=== PATIENT | male | born 1990 | race Caucasian/White ===

== ENCOUNTER 2023-06-06 08:23 | Emergency (ER) | payer BC, SELFPAY ==
[2023-06-06 08:34] VITALS: BP 143/94; PULSE 84; RESP 16; TEMP 35.9; O2SAT 96
--- NOTE | 2023-06-06 08:51 | ED.GENADULT ---
HPI - General Adult General Chief complaint: Upper Respiratory Infection Stated complaint: Poss sinus infection Source: patient, RN notes reviewed and old records reviewed Mode of arrival: ambulatory Limitations: no limitations History of Present Illness HPI narrative: 33-year-old male presents with complaint cough, sinus congestion, sinus pain, headache for over 1 week. Patient states nasal discharge and sputum production is yellow. Patient taking [id number] medications with no relief. Patient denies chest pain, weakness, dizziness, shortness of breath. MD complaint: Sinus congestion/ pressure, cough Onset (ago): week(s) (1) Related Data Allergies Allergy/AdvReac Type Severity Reaction Status Date / Time No Known Allergies Allergy Verified 06/06/23 08:45 Review of Systems Constitutional: Constitutional: Reports no additional constitutional complaints, Denies body ache(s), Denies chills, Denies fatigue, Denies fever(s) and Reports headache(s) Eyes: Eyes: Reports no additional eye complaints and Denies blurry vision ENT: Reports system reviewed and no additional complaints, except as documented, Denies vertigo, Denies dizziness, Denies ear discharge, Denies otalgia, Denies facial pain, Reports headache(s), Reports nasal congestion, Reports nasal discharge, Reports sinus pain, Reports sinus pressure and Denies sore throat Cardiovascular: Cardiovascular: Reports no additional cardiovascular complaints, Denies chest pain, Denies chest pain at rest, Denies rapid heart rate and Denies dyspnea Respiratory: Respiratory: Reports no additional respiratory complaints, Reports chest congestion, Reports cough, Denies pain on inspiration, Denies pain with cough and Denies dyspnea Gastrointestinal: Gastrointestinal: Denies abdominal pain, Denies diarrhea, Denies nausea and Denies vomiting Integumentary/Breasts: Skin/Breast: Denies rash Neurologic: Reports system reviewed and no additional complaints, except as documented, Denies vertigo, Denies dizziness and Denies headache(s) Endocrine: Endocrine: Denies fatigue PMFSH Comments At the time of my signature, I reviewed and agree with the nursing past medical, surgical, social, and family history. There is no relevant family history pertinent to the patient complaint. Exam Const: General: cooperative, healthy appearing, no acute distress and well nourished Nutritional Appearance: well nourished Orientation/consciousness: patient oriented x3 Limitations: no limitations HENMT: Head: normal to inspection and normocephalic Ears: external ears normal, TM's normal bilaterally, mastoids normal and Abnormal EAC present Face/Nose/Sinus: Nasal discharge present purulent bilateral Face and sinus: sinus tenderness maxillary ( left cited) Mouth: Yes Normal oral and palatal mucosa present, Yes oropharynx normal and Yes moist mucous membranes Throat: tonsils normal, uvula midline and no uvular edema Eyes: General: appearance normal, both eyes and all related structures Sclera: sclerae normal Pupils: Equal, round and reactive pupils present Resp: Effort & Inspection: normal respiratory effort, able to speak in complete sentences, no audible wheezes, no cough, no respiratory distress and no retractions Auscultation: clear to auscultation bilaterally, no crackles, no rales, no rhonchi and no wheezes Cardio: Rate: regular rate Rhythm: regular rhythm Skin: General skin exam: normal color and no rashes or lesions noted Neuro: General: patient oriented x3 Cranial nerves: Yes Equal, round and reactive pupils present Psych: Appearance: grossly normal Mental Status: mental status grossly normal Speech and movement: Normal speech and movement present Affect: normal affect Course Course Emergency Course: Patient is aware of diagnosis, understands and agrees to treatment plan.? Anticipatory guidance given.? Patient agrees to follow-up as directed and is aware of reasons to seek care at the em
== END 2023-06-06 09:02 | disposition home or self-care (01) ==
PROVIDERS: Emergency Provider Registered Nurse; PCP Internal Medicine
DX: J01.90 Acute sinusitis, unspecified (principal)
CPT/HCPCS: 99213; G0463

== ENCOUNTER 2024-12-11 09:12 | Emergency (ER) | payer BC, SELFPAY ==
--- OUTSIDE RECORDS SUMMARY | 2024-12-11 09:15 | XMS_ITS | Clinical Summary ---
Author Organization [facility] Charu Delvalle Address [address] [place] [address] Care Team Providers Care Art Gilder Name Role Phone Raman Alex MD Primary Care Provider Allergies No known active allergies Medications albuterol HFA (PROAIR HFA) 90 mcg/actuation inhaler inhale 2 puff by INHALATION route every 4 - 6 hours as needed 3 Inhaler 0 0 Active Additional Information Patient not taking.Reported on 11/24/2024 loratadine (CLARITIN) 10 mg tablet take 1 tablet by oral route every day 0 0 4 Active Additional Information Patient not taking.Reported on 11/24/2024 Active Problems Problem Noted Date Diagnosed Date Alopecia areata 10/25/2013 Overview (09/15/2016): Alopecia areata Atopic rhinitis 10/25/2013 Overview (09/15/2016): ALLERGIC RHINITIS NOS Asthma 10/25/2013 Overview (09/15/2016): ASTHMA NOS Encounters Date Type Department Care Team Description 11/24/2024 7:15 PM CDT Office Visit [facility] [place] [address] [place] [phone] Marita Orona NP Routine sports physical exam (Primary Dx) from Last 3 Months Surgical History Surgery Date Site/Laterality Comments OTHER SURGICAL HISTORY 2008 tendon laceration: s/p repair Medical History Medical History Date Comments Hx Other Medical tendon lacerati on Family History Medical History Relation Name Comments Other Father 2 h/o prosate can cer; Psoriasis Mother 2 psoriasis; Relation Name Status Comments Father 1 Alive Father 2 Mother 1 Alive Mother 2 Social History Tobacco Use Types Packs/Day Years Used Date Smoking Tobacco: Never Alcohol Use Standard Drinks/Week Comments Yes 0 (1 standard drink = 0.6 oz pur e alcohol) Sex and Gender Information Value Date Recorded Sex Assigned at Not on file 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 Gender Identity Not on file Sexual Orientation Not on file Obstetrics History Last Filed Vital Signs Vital Sign Reading Time Taken Comments Blood Pressure 124/82 11/24/2024 7:17 PM CDT Pulse 80 11/24/2024 7:17 PM CDT Temperature 36.2 C (97.1 F) 11/24/2024 7:17 PM CDT Respiratory Rate 16 11/24/2024 7:17 PM CDT Oxygen Saturation 97% 11/24/2024 7:17 PM CDT Inhaled Oxygen Concentration - - Weight 100.2 kg (221 lb) 11/24/2024 7:17 PM CDT Height 182.9 cm (6') 11/24/2024 7:17 PM CDT Body Mass Index 29.97 11/24/2024 7:17 PM CDT Plan of Treatment Health Maintenance Due Date Last Done Comments Depression Screening 1990 Hepatitis C Screening 1990 DTaP/Tdap/Td Vaccine (1 - Tdap) 01/27/2003 3 Varicella Vaccines (1 of 2 - 13+ 2-dose series) 2003 Hepatitis B Screening 2008 Regular Well Visit/Exam 18-64 2008 Pneumococcal vaccine <65 (1 of 2 - PCV) 2009 Influenza Vaccine (Season Ended) 2025 HPV Vaccines Aged Out No longer eligi ble based on patient's age to complete this topic Insurance [employer] Care Teams Art Gilder Relationship Specialty Start Date End Date Raman Alex MD PCP - General 10/15/13
--- OUTSIDE RECORDS SUMMARY | 2024-12-11 09:15 | XMS_ITS | Clinical Summary ---
Author Organization [facility] Address [address] [place] [phone] Phone Care Team Providers Care Solderer Production Line Name Role Phone Raman Alex MD Primary Care Provider [phone] Allergies No known active allergies Medications ketorolac tromethamine (ACULAR) 0.5 % solutionIndicatio ns:UV keratitis, bilateral Administer 1 Drop in both eyes 4 times daily. 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 Gender Identity Not on file Sexual Orientation Not on file Occupation Industry Job Start Date Job End Date Not on file Not on file Not on file Not on file Last Filed Vital Signs Vital Sign Reading Time Taken Comments Blood Pressure 117/71 01/15/2016 8:16 AM CDT Pulse 72 01/15/2016 8:16 AM CDT Temperature 36.8 C (98.2 F) 01/15/2016 8:16 AM CDT Respiratory Rate 16 01/15/2016 8:16 AM CDT Oxygen Saturation 97% 01/15/2016 8:16 AM CDT Inhaled Oxygen Concentration - - Weight 72.6 kg (160 lb) 01/15/2016 8:16 AM CDT Height 177.8 cm (5' 10) 01/15/2016 8:16 AM CDT Body Mass Index 22.96 01/15/2016 8:16 AM CDT Plan of Treatment Health Maintenance Due Date Last Done Comments DTAP/TDAP/TD VACCINES (1 - Tdap) 2009 HEPATITIS B VACCINES (1 of 3 - 19+ 3-dose series) 2009 INFLUENZA VACCINE (#1) 2024 HPV VACCINES Aged Out No longer eligi ble based on patient's age to complete this topic Insurance [facility] BLUE ACCESS CHOICE Care Teams Solderer Production Line Relationship Specialty Start Date End Date Raman Alex MD [facility] [address] [facility] [address] [place] [address] PCP - General Internal Medicine 04/17/10
--- OUTSIDE RECORDS SUMMARY | 2024-12-11 09:15 | XMS_ITS | Encounter Summary ---
Author Organization [facility] Address [address] [facility] [place] [address] Care Team Providers Care Net Developer Consultant Name Role Phone Unavailable Primary Care Provider Unavailabl e Encounter Details Date Type Department Care Team (Late st Contact Info) Description 11/27/2019 Lab Requisition [facility] [address] [place] [address] Social History Tobacco Use Types Packs/Day Years Used Date Smoking Tobacco: Never Assessed Sex and Gender Information Value Date Recorded Sex Assigned at Not on file Legal Sex Male 10:46 AM CDT Gender Identity Not on file Sexual Orientation Not on file documented as of this encounter Plan of Treatment Not on file documented as of this encounter Procedures Procedure Name Priority Date/Time Associated Diagnosis Comments SARS-COV-2 (COVID-19) IN HOUSE Routine 11/27/2019 9:16 AM CDT documented in this encounter Results * SARS-COV-2 (COVID-19) IN HOUSE (11/27/2019 9:16 AM CDT) COVID-19 PCR Not detected Not detected, Invalid 11/27/2019 8:56 PM CDT [facility] Microbiology SPECIMEN FROM NASOPHARYNGEAL STRUCTURE / Unknown Collection / Unknown 11/27/2019 9:16 AM CDT 11/27/2019 10:47 AM CDT Narrative [facility] - 11/27/2019 8:56 PM CDT This Real Time RT-PCR assay was developed and its performance characteristics determined by [facility]. This test has been authorized by the Food and Drug administration (FDA)under an Emergency Use Authorization (EUA). This test has been validated in accordance with the FDA's guidance document Policy for Diagnostic Testing in Laboratories Certified to perform High Complexity Testing under CLIA prior to Emergency Use Authorization for Coronavirus Disease-2019 during the Public Health Emergency issued on August 09, 2019. FDA independent review of this validation is pending. This test is only authorized for the duration of time the declaration that circumstances exist justifying the authorization of emergency use of in vitro diagnostic tests for detection of SARS-CoV-2 virus and/or diagnosis of COVID-19 infection under section 564(b)(1) of the Act, 21 U.S.C 360bbb-3 (b)(1), unless the authorization is terminated or revoked sooner. us LAB - MICROBIOLOGY ORDERABLES Fi nal Result [facility] [address] [place] [address], [facility] [phone] documented in this encounter Visit Diagnoses Not on filedocumented in this encounter Additional Health Concerns Infection Onset Date Last Indicated Resolved Time COVID-19 Under Investigation 11/27/2019 11/27/2019 11/27/2019 8:56 PM CDT documented as of this encounter
--- OUTSIDE RECORDS SUMMARY | 2024-12-11 09:15 | XMS_ITS | Clinical Summary ---
Author Organization [facility] [employer] Address [address] [place] [address] Care Team Providers Care Library Circulation Technician Name Role Phone Unavailable Primary Care Provider Unavailabl e Source Comments [facility],non-owned Affiliates and Associated Physician Practices is amultiple site organization consisting of ambulatory clinics and hospital sitesin [place], [place], [place] and [place]. This disclosure is being madepursuant to the Care Everywhere program and may not contain all information available regarding this patient. Last updated 18.[employer] Allergies No known active allergies Medications * Be aware that medications may not be up to date on this document. Alwaysverify current medications with the patient. HYDROcodone-celso taminophen (NORCO) 5-325 MG tablet Take 1 (one) tablet by mouth every 6 hours as needed for Pain 12 tablet 2 Active tamsulosin (FLOMAX) 0.4 MG capsule Take 1 (one) capsule by mouth once daily after breakfast At the same time every day after a meal. 20 capsule 2 Active ondansetron, disintegrating, (ZOFRAN ODT) 4 MG tablet Take 1 (one) tablet by mouth every 6 hours as needed for Nausea/Vomitin g Allow tablet to dissolve on the tongue 12 tablet 2 Active Social History Tobacco Use Types Packs/Day Years Used Date Smoking Tobacco: Never Assessed Sex and Gender Information Value Date Recorded Sex Assigned at Not on file Legal Sex Male 10:46 AM CDT Gender Identity Not on file Sexual Orientation Not on file Last Filed Vital Signs Vital Sign Reading Time Taken Comments Blood Pressure 152/98 01/06/2022 9:28 AM CDT Pulse 62 01/06/2022 8:10 AM CDT Temperature - - Respiratory Rate 18 01/06/2022 8:10 AM CDT Oxygen Saturation 98% 01/06/2022 10:28 AM CDT Inhaled Oxygen Concentration - - Weight 95.3 kg (210 lb) 01/06/2022 8:10 AM CDT Height 182.9 cm (6') 01/06/2022 8:10 AM CDT Body Mass Index 28.48 01/06/2022 8:10 AM CDT Plan of Treatment Health Maintenance Due Date Last Done Comments HIV SCREENING 2005 HEPATITIS C SCREENING 05/23/2008 DTAP/TDAP/TD VACCINES (1 - Tdap) 2009 HEPATITIS B VACCINE (1 of 3 - 19+ 3-dose series) 2009 COVID-19 VACCINE (1 - 2023-2 5 season) 2024 DEPRESSION SCREENING 06/11/2024 INFLUENZA VACCINE (Season Ended) 2025 ZOSTER VACCINE (1 of 2) 2040 HIB VACCINE Aged Out No longer eligi ble based on patient's age to complete this topic HPV VACCINE Aged Out No longer eligi ble based on patient's age to complete this topic MENINGOCOCCAL (Group B) VACC INE SHARED DECISION-MAKING Aged Out No longer eligibl e based on patient's age to complete this topic MENINGOCOCCAL GROUPS A/C/Y/W VACCINE Aged Out No longer eligible b ased on patient's age to complete this topic PNEUMOCOCCAL VACCINE Aged Out No long er eligible based on patient's age to complete this topic Insurance [employer]
--- OUTSIDE RECORDS SUMMARY | 2024-12-11 09:15 | XMS_ITS | Referral Summary ---
Author Organization [facility] Charu Delvalle Address [address] [place] [address] Care Team Providers Care Block Placer Name Role Phone Raman Alex MD Primary Care Provider Encounters Date Type Department Care Team Description 11/24/2024 7:15 PM CDT Office Visit [facility] [place] [address] [place] [phone] Marita Orona, SERGIO Routine sports physical exam (Primary Dx) from Last 3 Months Allergies No known active allergies Medications albuterol [...] NOS Asthma 10/25/2013 Overview (09/15/2016): ASTHMA NOS Social History Tobacco Use Types Packs/Day Years Used Date Smoking Tobacco: Never Alcohol Use Standard Drinks/Week Comments Yes 0 (1 standard drink = 0.6 oz pur e alcohol) Sex and Gender Information Value Date Recorded Sex Assigned at Not on file 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
[2024-12-11 09:18] VITALS: BP 140/94; PULSE 80; RESP 20; TEMP 36.6; O2SAT 100
--- NOTE | 2024-12-11 09:20 | ED_ITS ---
HPI - Wound/Laceration General Chief Complaint: Wound/Laceration Stated Complaint: Cut on head Time Seen by Provider: 12/11/24 09:20 Source: patient Mode of arrival: ambulatory Limitations: no limitations History of Present Illness HPI narrative: 34 y/o male presented for c/o laceration to the head sustained last night 10pm. Says he struck his head while working underneath a car. Pt cleansed the site twice in the shower last night. Says it has continued to bleed. Has not taken anything for pain, rates 5/10. no LOC, dizziness, n/v or confusion. Last tetanus 2019. Related Data Allergies Allergy/AdvReac Type Severity Reaction Status Date / Time No Known Allergies Allergy Verified 12/11/24 09:32 Review of Systems Review of Systems: CONSTITUTIONAL: Denies body aches, fever, chills, or sweats. EYES: Denies visual changes, redness, or discharge. ENT: Denies rhinorrhea, congestion CARDIOVASCULAR: Denies chest pain, palpitations, or edema. RESPIRATORY: Denies cough or dyspnea. GASTROINTESTINAL: Denies abdominal pain, nausea, vomiting, or diarrhea. SKIN: per HPI MUSCULOSKELETAL: Denies back pain, joint pain, or myalgia. NEUROLOGIC: Denies headache, numbness, tingling, or weakness. PMFSH Comments At time of signature, I have reviewed and agree with nursing past medical, surgical, social and family history unless otherwise noted. Please see nursing chart for further information. There is no relevant family history pertinent to the presenting complaint Exam Narrative: GENERAL: Well-appearing HEAD: Left frontal scalp with2.5cm linear laceration, gaping approx 2mm, active bleeding, mild swelling surrounding the site. EYES: conjunctivae clear, and EOMI. ENT: Mucous membranes moist. Oropharynx without edema, erythema or lesions. NECK: Supple. No lymphadenopathy CHEST: Clear to auscultation. HEART: Regular rate and rhythm. SKIN: Warm, dry. NEURO: Alert and oriented x3. Course Course Emergency Course: Patient is aware of diagnosis, understands and agrees to treatment plan. Anticipatory guidance given. Patient agrees to follow-up as directed and is aware of reasons to seek care at the emergency department. Portions of this record may have been created with voice recognition software Level of Care: Express Care Visit Vital Signs Vital signs: Vital Signs Temperature 97.8 F 12/11/24 09:18 Pulse Rate 80 12/11/24 09:18 Respiratory Rate 20 12/11/24 09:18 Blood Pressure 140/94 H 12/11/24 09:18 Pulse Oximetry 80 L 12/11/24 09:18 Oxygen Delivery Room Air 12/11/24 09:18 Temperature 97.8 F 12/11/24 09:18 Pulse Rate 80 12/11/24 09:18 Respiratory Rate 20 12/11/24 09:18 Blood Pressure 140/94 H 12/11/24 09:18 Pulse Oximetry 80 L 12/11/24 09:18 Oxygen Delivery Room Air 12/11/24 09:18 Reviewed Procedures Laceration Left frontal scalp: Site: scalp Size (cm): 2.5 Description: linear and clean Depth: simple, single layer Pre-repair: irrigated (and cleansed with skintegrity) ====== Skin Level ====== Skin layer closed with: chiqui (#3) ====== Subcutaneous Layer ====== ====== Muscle Layer ====== ====== Tendon Layer ====== Dressing: The procedure and its alternatives were reviewed with patient. Risks were reviewed with patient including infection and damage to nearby structures. Patient provided verbal informed consent. The patient was positioned appropriately. Wound was explored for abnormalities including infection and foreign bodies. Chiqui placed with wound edges approximated. Patient tolerated well, no complications. MDM - Wound/Laceration MDM Narrative Medical decision making narrative: Discussed physical exam findings; scalp laceration. Pt tolerated staple placement. tetanus utd. Advised supportive measures and signs/symptoms to go to the ER. Pt is appropriate for outpt treatment and f/u. Differential Diagnosis Differential diagnosis: Likely laceration, abrasion and avulsion of skin Discharge Plan Discharge Clinical Impression: Laceration of scalp Patient Disposition: Home Condition: Stable Instructions: Head Laceration (ED) Additional Instructions: Your chiqui need to be removed in 7-10 days. You can return to the clinic or follow up with your pcp. Do NOT wash with peroxide or alcohol. Take tylenol or ibuprofen at home for pain Ice pack to the site as needed Follow up with your PCP Go to the ER with any signs of infection such as redness, swelling, increased pain, or drainage. Patient Language: Trinidadian Prescriptions: New cephalexin 500 mg capsule 500 mg PO Q12H 5 Days Qty: 10 0RF Follow-up/Referrals: PHYSICIAN NOT ON STAFF,NONSTAFF [Primary Care Provider] - Time of Disposition: 09:46
== END 2024-12-11 09:48 | disposition home or self-care (01) ==
PROVIDERS: Emergency Provider Nurse Practitioner Family
DX: S01.01XA Laceration without foreign body of scalp, initial encounter (principal); W22.8XXA Striking against or struck by other objects, initial encounter
CPT/HCPCS: 12001; 99213; G0463